=== PATIENT | female | born 1955 | race Caucasian/White ===

== ENCOUNTER 2021-06-17 07:42 | Emergency (ER) | payer MEDICARE ==
[~2021-06-17] VITALS: Ht 152.4 cm; Wt 86.4 kg
[2021-06-17 08:49] VITALS: BP 116/75
== END 2021-06-17 08:50 | disposition home or self-care (01) ==
LOC: ER 07:43
DX: J04.0 Acute laryngitis (principal); R05.9 Cough, unspecified; R49.1 Aphonia; Z86.711 Personal history of pulmonary embolism; Z79.01 Long term (current) use of anticoagulants
CPT/HCPCS: 99281